=== PATIENT | male | born 1990 | race Caucasian/White ===

== ENCOUNTER 2025-05-13 19:19 | Emergency (ER) | payer OTHER ==
[~2025-05-13] VITALS: Ht 182.9 cm; Wt 100.0 kg
[2025-05-13] MEDS ORDERED: ASPIRIN 81 MG CHEW PO ONE (19:30)
[2025-05-13] MEDS ORDERED: NITROGLYCERIN 0.4 MG SUBL SL PRN (19:30)
[2025-05-13 19:34] LABS: BASOPHILS 1.1 % (0.2-1.2); EOSINOPHILS 6.1 % (0.8-7.0); LYMPHOCYTES 33.6 % (21.8-53.1); MCH 29.8 PG (25.7-32.2); MCHC 33.7 g/dL (32.3-36.5); MCV 88.3 fL (79.0-92.2); MONOCYTES 7.5 % (5.3-12.2); NEUTROPHILS 51.5 % (34.0-67.9); RBC 4.94 M/uL (4.63-6.08)
[2025-05-13 19:53] LABS: ALT (SGPT) 27 U/L (14-59); AST (SGOT) 17 U/L (15-37); GLOMERULAR FILTRATION RATE,EST 78 mL/min (>60); PROTEIN, TOTAL 7.8 g/dL (6.4-8.2); UREA NITROGEN 10 mg/dL (7-18)
[2025-05-13] MEDS ORDERED: KETOROLAC TROMETHAMINE 30 MG/ML VIAL IV ONE (20:30)
[2025-05-13 21:01] VITALS: BP 119/78
--- NOTE | 2025-05-17 10:40 | EKG ---
[facility] [address] [place] [address] Signed Normal sinus rhythm with sinus arrhythmia Normal ECG No previous ECGs available Confirmed by Padmini Duval DO ([id number]) on 05/17/2025 10:40:09 AM Electronically Signed By: PADMINI DUVAL DO 05/17/25 1040 PATIENT NAME: CLEMENCIA COFFMAN Electrocardiogram DATE OF : 86 PHYSICIAN: PADMINI DUVAL DO REPORT #: [id number] REPORT IS CONFIDENTIAL AND NOT TO BE RELEASED WITHOUT AUTHORIZATION
== END 2025-05-13 21:01 | disposition home or self-care (01) ==
LOC: ED 19:19
PROVIDERS: Emergency Medicine
DX: R07.89 Other chest pain (principal); F17.290 Nicotine dependence, other tobacco product, uncomplicated
CPT/HCPCS: 36415; 71045; 80053; 83735; 84484; 85025; 93005; 93010; 96374; 99285-25; A9270; J1885